=== PATIENT | female | born 1975 | race Caucasian/White ===

== ENCOUNTER 2020-11-29 12:51 | Outpatient (CLI) | payer OTHER | END 2020-11-29 13:05 | disposition home or self-care (01) | LOC: MAMO-SONO 12:51 | PROVIDERS: ATTEND Obstetrics & Gynecology | DX: N64.4 Mastodynia (principal); Z12.31 Encounter for screening mammogram for malignant neoplasm of breast ==

== ENCOUNTER 2021-04-16 03:24 | Emergency (ER) | payer OTHER ==
[~2021-04-16] VITALS: Ht 154.9 cm; Wt 77.1 kg
[2021-04-16] MEDS ORDERED: ECOTRIN81 MG (03:33)
[2021-04-16] MEDS ORDERED: ZOCOR40 MG (03:33)
== END 2021-04-16 08:52 | disposition home or self-care (01) ==
LOC: ER 03:24
DX: R11.10 Vomiting, unspecified (principal); R10.13 Epigastric pain

== ENCOUNTER → 2021-11-02 | Emergency (ER) | payer OTHER ==
[~2021-11-02] VITALS: Ht 154.9 cm; Wt 76.2 kg
[~2021-11-02] MED LIST: ECOTRIN81 MG; ZOCOR40 MG
== END | disposition designated cancer center or children's hospital (05) ==
LOC: ER 09:55
DX: R10.84 Generalized abdominal pain (principal); K36 Other appendicitis; Z20.822 Contact with and (suspected) exposure to COVID-19
CPT/HCPCS: 36415; 74177; Q9965

== ENCOUNTER 2021-12-31 08:02 | Outpatient (CLI) | payer OTHER | END 2021-12-31 08:04 | disposition home or self-care (01) | LOC: MAMO-SONO 08:02 | PROVIDERS: ATTEND Obstetrics & Gynecology | DX: Z12.31 Encounter for screening mammogram for malignant neoplasm of breast (principal); N64.4 Mastodynia ==

== ENCOUNTER 2021-12-31 08:13 | Outpatient (CLI) | payer OTHER | END 2021-12-31 08:14 | disposition home or self-care (01) | LOC: LAB 08:13 | PROVIDERS: ATTEND Obstetrics & Gynecology | DX: N95.1 Menopausal and female climacteric states (principal) ==

== ENCOUNTER 2022-05-22 09:12 | Outpatient (CLI) | payer OTHER | END 2022-05-22 09:13 | disposition home or self-care (01) | LOC: LAB 09:12 | PROVIDERS: ATTEND Obstetrics & Gynecology | DX: R53.83 Other fatigue (principal); R68.82 Decreased libido; R10.2 Pelvic and perineal pain ==